=== PATIENT | female | born 2000 | race Caucasian/White ===

== ENCOUNTER 2024-09-11 10:16 | Emergency (ER) | payer OTHER ==
[~2024-09-11] VITALS: Ht 157.5 cm; Wt 61.4 kg
[2024-09-11 10:17] VITALS: BP 124/77; PULSE 122; RESP 18; TEMP 97.9; O2SAT 100
[2024-09-11] MEDS ORDERED: METH5SOL20 PO (10:22)
[2024-09-11] MEDS ORDERED: FLUT1BLS19 IH (10:22)
[2024-09-11] MEDS ORDERED: ALBU90AE IH (10:22)
[2024-09-11 11:00] LABS: PLATELET COUNT (AUTO) 268 K/uL (150-450); RED BLOOD CELL COUNT(AUTO) 4.74 MIL/uL (4.00-5.20); RED CELL DISTRIBUTION WIDTH 18.4 % (11.5-14.5); WHITE BLOOD COUNT (AUTO) 9.2 K/uL (4.5-11.0)
[2024-09-11 11:03] LABS: CALCIUM, TOTAL 8.6 mg/dL (8.8-10.5); CREATININE 1.00 mg/dL (0.60-1.30); GLOMERULAR FILTR. RATE CALC > 60 mL/min (>60); GLUCOSE,RANDOM 90 mg/dL (70-110); SODIUM SERUM 140 mmol/L (136-145); UREA NITROGEN, BLOOD 17 mg/dL (7-18)
[2024-09-11 11:11] LABS: RBC MORPHOLOGY COMMENT ABNORMAL RBC MORPH
[2024-09-11] MEDS ORDERED: CEPH-558 PO (11:39)
[2024-09-11] MEDS ORDERED: SULF1TAB42 PO (11:39)
[2024-09-11] MEDS ORDERED: MOXI3DRO25 OD (11:46)
== END 2024-09-11 11:50 | disposition home or self-care (01) ==
LOC: EMS 10:28
DX: L03.115 Cellulitis of right lower limb (principal); J45.909 Unspecified asthma, uncomplicated; F41.9 Anxiety disorder, unspecified; F15.90 Other stimulant use, unspecified, uncomplicated; F11.90 Opioid use, unspecified, uncomplicated; Z98.890 Other specified postprocedural states; Z79.51 Long term (current) use of inhaled steroids; Z79.899 Other long term (current) drug therapy
CPT/HCPCS: 80048; 85025; 93971; 99284